=== PATIENT | female | born 1970 | race Caucasian/White ===

== ENCOUNTER 2019-03-10 14:37 | Emergency (ER) | payer OTHER ==
[~2019-03-10] VITALS: Ht 157.5 cm; Wt 66.7 kg
[~2019-03-10 14:37] MED LIST: AMOCLA875 PO; AMOX500 PO; AZIT500 PO; BUSP10 PO; BUSP5 PO; CIPR250 PO; CLIN150 PO; CODACE30 PO; CYCL10 PO; FAMO20 PO; FLUO20 PO; HYDACE5 PO; IBUP200; IBUP400 PO; IBUP600 PO; IBUP800 PO; IBUPROFEN PRN; KETO10 PO; LORA1 PO; NAPR500 PO; NAPR550 PO; OMEP20ER PO; OXYACE5T PO; OXYC30ER PO; PENVK250 PO; PENVK500 PO; PHENA200 PO; PRED10 PO; PROM25 PO; PROP20 PO; PROP80ER PO; RXAMOX500 PO; RXHYDACE PO; RXPROM25 PO; SERT50 PO; SUMA25 PO; TRAM50 PO
[2019-03-10] MEDS ORDERED: Amoxicillin500 MG PO (14:53)
[2019-03-10] MEDS ORDERED: NYST237S MT (14:53)
== END 2019-03-10 14:56 | disposition home or self-care (01) ==
LOC: ER 14:37
DX: K04.7 Periapical abscess without sinus (principal); I10 Essential (primary) hypertension; G43.909 Migraine, unspecified, not intractable, without status migrainosus; F41.9 Anxiety disorder, unspecified; F17.200 Nicotine dependence, unspecified, uncomplicated; Z79.899 Other long term (current) drug therapy; Z88.2 Allergy status to sulfonamides
CPT/HCPCS: 99282

== ENCOUNTER 2019-03-18 16:01 | Emergency (ER) | payer OTHER ==
[~2019-03-18] VITALS: Ht 154.9 cm; Wt 67.1 kg
[~2019-03-18 16:01] MED LIST changes: +Amoxicillin500 MG PO; +NYST237S MT
[2019-03-18] MEDS ORDERED: PRAZ5 PO (16:14)
[2019-03-18] MEDS ORDERED: BUPR75 PO (16:15)
== END 2019-03-18 16:53 | disposition home or self-care (01) ==
LOC: ER 16:01
DX: G43.109 Migraine with aura, not intractable, without status migrainosus (principal); Z88.2 Allergy status to sulfonamides; Z79.899 Other long term (current) drug therapy; I10 Essential (primary) hypertension; F17.210 Nicotine dependence, cigarettes, uncomplicated; G43.909 Migraine, unspecified, not intractable, without status migrainosus; F41.9 Anxiety disorder, unspecified
CPT/HCPCS: 96374; 96375; 99283-25; J0780; J1200; J1885; J7030